=== PATIENT | female | born 1985 | race American Indian/Alaskan Native ===

== ENCOUNTER 2021-06-27 20:28 | Emergency (ER) | payer MEDICAID ==
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
[2021-06-27 23:04] VITALS: BP 128/76
== END 2021-06-27 23:05 | disposition home or self-care (01) ==
LOC: ED 20:28
DX: J45.909 Unspecified asthma, uncomplicated; F17.200 Nicotine dependence, unspecified, uncomplicated; Z79.899 Other long term (current) drug therapy
CPT/HCPCS: 99283